=== PATIENT | female | born 1965 | race Caucasian/White ===

== ENCOUNTER → 2020-05-26 | Outpatient (CLI) | payer SELFPAY ==
--- NOTE | 2020-05-27 13:28 | RAD ---
3 radiographs right wrist Indication: pain in right wrist Comparison: None Impression: Minimally impacted distal radial metaphysis fracture with slight dorsal subluxation distal fracture fragment. The fracture is obscured due to casting material. The fracture appears incompletely united. Mild sclerosis noted at its volar margin. Electronically signed by: Davonte Salguero MD 05/27/2020 1:26 PM [facility]
== END ==
LOC: RAD 11:26
PROVIDERS: ATTEND Orthopaedic Surgery
DX: S52.501A Unspecified fracture of the lower end of right radius, initial encounter for closed fracture (principal); S63.006A Unspecified dislocation of unspecified wrist and hand, initial encounter